=== PATIENT | female | born 1975 | race Caucasian/White ===

== ENCOUNTER → 2017-09-21 | Outpatient (CLI) | payer OTHER | LOC: LAB 08:13 | PROVIDERS: ATTEND Physician Assistant | DX: E03.9 Hypothyroidism, unspecified (principal); R89.9 Unspecified abnormal finding in specimens from other organs, systems and tissues | CPT/HCPCS: 36415; 82728; 84439; 84443; 84466 ==

== ENCOUNTER → 2017-11-30 | Outpatient (CLI) | payer OTHER | LOC: LAB 07:20 | PROVIDERS: ATTEND Physician Assistant | DX: E03.9 Hypothyroidism, unspecified (principal) | CPT/HCPCS: 36415; 84443 ==